=== PATIENT | female | born 1990 | race Two or more races ===

== ENCOUNTER 2025-02-11 04:15 | Inpatient (IN) | payer OTHER ==
[~2025-02-11] VITALS: Ht 160 cm; Wt 2.3 kg
[~2025-02-11 04:15] MED LIST: ANTICONCEPTIVOS
[2025-02-11 04:47] VITALS: BP 118/74
[2025-02-11] MEDS ORDERED: PRENATAL TABLE1 EAC1 PO (05:23)
[2025-02-11] MEDS ORDERED: NIFEDIPINE20 MG PO (05:24)
[2025-02-11] MEDS ORDERED: CLINDAMYCIN PHO40 GM VAG (05:25)
[2025-02-11] MEDS ORDERED: CEFAZOLIN SODIUM 1,000 MG VIAL IV SCH ×2 (05:30→14:00)
[2025-02-11 06:14] VITALS: BP 95/58; O2SAT 99
[2025-02-11] MEDS ORDERED: CEFAZOLIN SODIUM 1,000 MG VIAL ONE ×2 (07:39→13:29)
[2025-02-11 10:00] VITALS: BP 122/79
[2025-02-11] MEDS ORDERED: OXYTOCIN 10 UNITS/ML VIAL ONE (10:26)
[2025-02-11] MEDS ORDERED: ERYTHROMYCIN BASE OPHT 1GM EACH TUBE OP ONE (10:26)
[2025-02-11] MEDS ORDERED: TRIAMCINOLONE ACETONIDE 40 MG/ML VIAL ONE (11:07)
[2025-02-11] MEDS ORDERED: CARBOPROST TROMETHAMINE 250 MCG/ML AMPUL IM ONE ×2 (11:08→11:53)
[2025-02-11] MEDS ORDERED: METHYLERGONOVINE MALEATE 0.2 MG/ML AMPUL ONE (11:40)
[2025-02-11] MEDS ORDERED: PROMETHAZINE HCL 25 MG/ML AMPUL IV SCH (14:00)
[2025-02-11] MEDS ORDERED: MORPHINE SULFATE 4 MG/ML VIAL IV SCH (14:00)
[2025-02-11 17:29] LABS: BASO % 0.4 % (0.1-1.2); EOS # 0.01 (0.04-0.54); EOS % 0.0 % (0.7-7.0); LYMPH # 1.54 (1.18-3.74); LYMPH % 7.1 % (19.3-53.1); MEAN PLATELET VOLUME 9.90 fl (9.4-12.4); MONO # 1.56 (0.24-0.82); MONO % 7.2 % (4.7-12.5); NEUT # 18.19 (1.56-6.13); NEUT % 83.7 % (34.0-71.1); RED CELL DISTRIBUTION WIDTH 12.7 % (11.6-14.4)
[2025-02-11 17:36] VITALS: BP 117/57
[2025-02-12 00:28] VITALS: BP 110/69
[2025-02-12 04:30] VITALS: BP 104/68
[2025-02-12] MEDS ORDERED: ACETAMINOPHEN WITH CODEINE 1 UDTAB TABLET PO PRN (08:30)
[2025-02-12] MEDS ORDERED: NAPROXEN 500 MG TABLET PO PRN (08:30)
[2025-02-12 09:14] VITALS: BP 107/698
[2025-02-12 10:15] LABS: BASO % 0.2 % (0.1-1.2); EOS # 0.01 (0.04-0.54); EOS % 0.1 % (0.7-7.0); LYMPH # 1.76 (1.18-3.74); LYMPH % 10.3 % (19.3-53.1); MEAN PLATELET VOLUME 10.10 fl (9.4-12.4); MONO # 0.88 (0.24-0.82); MONO % 5.1 % (4.7-12.5); NEUT # 14.17 (1.56-6.13); NEUT % 82.7 % (34.0-71.1); RED CELL DISTRIBUTION WIDTH 12.8 % (11.6-14.4)
[2025-02-12] MEDS ORDERED: IRON FUM,PS/FOLIC/BCOMP,C NO.9 1 CAP CAPSULE PO STA (12:14)
[2025-02-12 17:00] VITALS: BP 119/78
[2025-02-12] MEDS ORDERED: IRON FUM,PS/FOLIC/BCOMP,C NO.9 1 CAP CAPSULE PO SCH (17:00)
[2025-02-13] VITALS: BP 111/71
[2025-02-13 07:53] LABS: BASO % 0.4 % (0.1-1.2); EOS # 0.18 (0.04-0.54); EOS % 1.4 % (0.7-7.0); LYMPH # 2.01 (1.18-3.74); LYMPH % 15.2 % (19.3-53.1); MEAN PLATELET VOLUME 9.90 fl (9.4-12.4); MONO # 0.98 (0.24-0.82); MONO % 7.4 % (4.7-12.5); NEUT # 9.83 (1.56-6.13); NEUT % 74.4 % (34.0-71.1); RED CELL DISTRIBUTION WIDTH 13.5 % (11.6-14.4)
[2025-02-13 09:10] VITALS: BP 110/71
[2025-02-13] MEDS ORDERED: IRON FUM,PS/FOLIC/BCOMP,C NO.9 1 CAP CAPSULE PO SCH (12:26)
== END 2025-02-13 12:42 | disposition home or self-care (01) | DRG 788 ==
LOC: LDR → OB/GYN 04:15 → LDR 04:15 → O/R 12:12 → OB/GYN 12:29
PROVIDERS: ADMIT Specialist; ATTEND Specialist
PROC: 4A1HXCZ Monitoring of Products of Conception, Cardiac Rate, External Approach (ICD-10-PCS; 2025-02-11)
PROC: 10D00Z1 Extraction of Products of Conception, Low, Open Approach (ICD-10-PCS; principal; 2025-02-11 15:30)
DX: O41.03X0 Oligohydramnios, third trimester, not applicable or unspecified (principal); O69.81X0 Labor and delivery complicated by cord around neck, without compression, not applicable or unspecified; O36.5930 Maternal care for other known or suspected poor fetal growth, third trimester, not applicable or unspecified; Z3A.37 37 weeks gestation of pregnancy; Z37.0 Single live birth